=== PATIENT | female | born 1980 | race Caucasian/White ===

== ENCOUNTER 2017-08-21 09:01 | Inpatient (IN) | payer OTHER ==
[2017-08-21] MEDS ORDERED: LACTATED RINGER'S 1,000 ML IV (13:31)
[2017-08-21] MEDS ORDERED: OXYTOCIN 30 UNITS/LR 500 ML IV ×3 (14:00→23:00)
[2017-08-21] MEDS ORDERED: LIDOCAINE 1% (MPF) 30 ML INJ INJ (14:00)
[2017-08-21] MEDS ORDERED: METHYLERGONOVINE 0.2 MG INJ IM (14:00)
[2017-08-21] MEDS ORDERED: CARBOPROST 250 MCG INJ IM ×2 (14:00→23:00)
[2017-08-21] MEDS ORDERED: IBUPROFEN 600 MG TAB PO (14:00)
[2017-08-21] MEDS ORDERED: MISOPROSTOL 200 MCG TAB PR ×2 (14:00→23:00)
[2017-08-21] MEDS ORDERED: BUTORPHANOL 2 MG INJ IV (14:00)
[2017-08-21 14:19] LABS: ADD MAN DIFF? NO
[2017-08-21 14:23] LABS: ABNORMAL IP MESSAGE 1; BASOPHILS % 0.2 % (0.0-2.0); EOSINOPHILS # 0.1 10^3/ul (0.0-0.5); EOSINOPHILS % 0.6 % (0.0-7.0); HEMATOCRIT 34.7 % (37.0-47.0); LYMPHOCYTES # 1.6 10^3/ul (0.8-2.9); LYMPHOCYTES % 18.8 % (15.0-51.0); MEAN CORPUSCULAR HEMOGLOBIN 25.8 pg (29.0-33.0); MEAN CORPUSCULAR HGB CONC 31.7 g/dl (32.0-37.0); MEAN CORPUSCULAR VOLUME 81.5 fl (82.0-101.0); MEAN PLATELET VOLUME 12.7 fl (7.4-10.4); MONOCYTE # 0.5 10^3/ul (0.3-0.9); MONOCYTES % 6.3 % (0.0-11.0); NEUTROPHIL # 6.2 10^3/ul (1.6-7.5); NEUTROPHILS % 73.6 % (39.0-77.0); PLATELET COUNT 179 10^3/UL (140-415); RED BLOOD COUNT 4.26 10^6/ul (4.20-5.40); RED CELL DISTRIBUTION WIDTH 14.8 % (11.5-14.5)
[2017-08-21 14:23] LABS: WHITE BLOOD COUNT 8.4 10^3/ul (4.8-10.8)
[2017-08-21 14:26] LABS: POSITIVE DIFF @See below
[2017-08-21 14:43] LABS: PARTIAL THROMBOPLASTIN TIME 25.7 Sec (25.0-35.0)
[2017-08-21 14:51] LABS: INR 1.08; PROTIME 14.1 Sec (11.9-14.9); PT RATIO 1.1
[2017-08-21 15:05] LABS: HEPATITIS B SURFACE ANTIGEN NEGATIVE (NEGATIVE)
[2017-08-21 15:10] LABS: RAPID PLASMA REAGIN NONREACTIVE (NR)
[2017-08-21] MEDS: AMPICILLIN 2 GM/NS (PMX) 100 ML IV (15:37)
[2017-08-21] MEDS: LACTATED RINGER'S 1,000 ML IV ×3 (15:42→19:29)
[2017-08-21] MEDS ORDERED: NALOXONE (0.4 MG/ML) INJ IV (16:00)
[2017-08-21] MEDS ORDERED: DIPHENHYDRAMINE 50 MG INJ IV (16:00)
[2017-08-21] MEDS: OXYTOCIN 30 UNITS/LR 500 ML IV ×2 (17:54→23:02)
[2017-08-21] MEDS: AMPICILLIN 1 GM/NS (PMX) 50 ML IV (19:28)
[2017-08-21] MEDS: FENTAnyl 2MCG/ML-ROPIV 0.2% 100 ML BAG EPI (19:29)
[2017-08-21] MEDS: ONDANSETRON 4 MG INJ IV (21:46)
[2017-08-21] MEDS: CEFAZOLIN 2 GM/50 ML (PMX) 50 ML IVPB (22:05)
[2017-08-21] MEDS ORDERED: CEFAZOLIN 2 GM/50 ML (PMX) 50 ML IVPB (22:39)
[2017-08-21] MEDS: LACTATED RINGER'S 1,000 ML IV* (22:41)
[2017-08-21] MEDS ORDERED: DIBUCAINE 1% 30 GM OINT PR (23:00)
[2017-08-21] MEDS ORDERED: HYDROCODONE/APAP (5/325) TAB PO ×2 (23:00)
[2017-08-21] MEDS: METHYLERGONOVINE 0.2 MG INJ IM (23:17)
[2017-08-22] MEDS: IBUPROFEN 600 MG TAB PO ×5 (01:19→23:30)
[2017-08-22] MEDS: LANOLIN 7 GM TUBE TOP (01:19)
[2017-08-22] MEDS: BENZOCAINE 20% 56 ML SPRAY TOP (01:19)
[2017-08-22] MEDS: WITCH HAZEL/GLYCERIN PAD PR (01:19)
[2017-08-22] MEDS: OXYTOCIN 30 UNITS/LR 500 ML IV (03:43)
[2017-08-22] MEDS: LACTATED RINGER'S 1,000 ML IV* ×3 (06:41→22:41)
[2017-08-22 09:41] LABS: ADD MAN DIFF? NO
[2017-08-22 09:49] LABS: ABNORMAL IP MESSAGE 1; BASOPHILS % 0.3 % (0.0-2.0); EOSINOPHILS # 0.1 10^3/ul (0.0-0.5); EOSINOPHILS % 0.6 % (0.0-7.0); HEMATOCRIT 29.8 % (37.0-47.0); HEMOGLOBIN 9.5 g/dl (12.0-16.0); LYMPHOCYTES # 1.8 10^3/ul (0.8-2.9); LYMPHOCYTES % 13.5 % (15.0-51.0); MEAN CORPUSCULAR HEMOGLOBIN 26.1 pg (29.0-33.0); MEAN CORPUSCULAR HGB CONC 31.9 g/dl (32.0-37.0); MEAN CORPUSCULAR VOLUME 81.9 fl (82.0-101.0); MEAN PLATELET VOLUME 13.7 fl (7.4-10.4); MONOCYTES % 7.4 % (0.0-11.0); NEUTROPHIL # 10.3 10^3/ul (1.6-7.5); NEUTROPHILS % 77.8 % (39.0-77.0); PLATELET COUNT 182 10^3/UL (140-415); RED BLOOD COUNT 3.64 10^6/ul (4.20-5.40); RED CELL DISTRIBUTION WIDTH 14.6 % (11.5-14.5)
[2017-08-22 09:49] LABS: WHITE BLOOD COUNT 13.3 10^3/ul (4.8-10.8)
[2017-08-22] MEDS: INFLUENZA VIRUS VACCINE 0.5 ML SYG IM* (15:07)
[2017-08-23] MEDS: IBUPROFEN 600 MG TAB PO ×3 (05:32→17:36)
[2017-08-23] MEDS: LACTATED RINGER'S 1,000 ML IV* ×2 (06:41→14:41)
[2017-08-23] MEDS: VARICELLA VACCINE LIVE/PF 1,350 UNIT/0.5 ML ML SC* (09:00)
[2017-08-23] MEDS: MEASLES,MUMPS,RUBELLA VACCINE INJ SC* (09:00)
[2017-08-23] MEDS ORDERED: DIPHTH/TET/ACEL PERTUSS (ADULT) 0.5 ML VIAL IM* (09:00)
[2017-08-23] MEDS: DIPHTH/TET/ACEL PERTUSS (ADULT) 0.5 ML VIAL IM* (15:33)
[2017-08-24] MEDS ORDERED: INFLUENZA VIRUS VACCINE 0.5 ML (DISPENSING) IM* (09:00)
== END 2017-08-23 22:00 | disposition home or self-care (01) | DRG 775 ==
LOC: OBT 09:01 → PP1 08-22 00:38 → L-D 09:01 → OBT 13:10 → L-D 13:00
PROVIDERS: Obstetrics & Gynecology
PROC: 10E0XZZ Delivery of Products of Conception, External Approach (ICD-10-PCS; principal; 2017-08-21)
PROC: 0KQM0ZZ Repair Perineum Muscle, Open Approach (ICD-10-PCS; 2017-08-21)
PROC: 3E033VJ Introduction of Other Hormone into Peripheral Vein, Percutaneous Approach (ICD-10-PCS; 2017-08-21)
DX: O70.1 Second degree perineal laceration during delivery (principal); Z37.0 Single live birth; Z3A.37 37 weeks gestation of pregnancy
CPT/HCPCS: 62319; 76815; 76818; 85025; 85610; 85730; 86592; 86885; 86900; 86901; 87340; 90686; 90715; 90716